=== PATIENT | male | born 1960 | race Caucasian/White ===

== ENCOUNTER 2020-11-01 09:02 | Outpatient (CLI) | payer OTHER, SELFPAY | END 2020-11-01 09:03 | disposition home or self-care (01) | LOC: ANHCOVIDVC 09:02 | PROVIDERS: PCP Urology | DX: Z23 Encounter for immunization (principal) | CPT/HCPCS: 0001A; 91300 ==

== ENCOUNTER 2020-11-22 09:00 | Outpatient (CLI) | payer OTHER, SELFPAY | END 2020-11-22 09:01 | disposition home or self-care (01) | LOC: ANHCOVIDVC 09:00 | PROVIDERS: PCP Urology | DX: Z23 Encounter for immunization (principal) | CPT/HCPCS: 0002A; 91300 ==

== ENCOUNTER 2021-01-30 10:17 | Outpatient (CLI) | payer OTHER, SELFPAY ==
--- NOTE | 2021-01-30 | ECG_ITS ---
Measurements Intervals [place] Rate: 83 P: 40 LA: 154 QRS: 3 QRSD: 86 T: 8 QT: 353 QTc: 417 Interpretive Statements SINUS RHYTHM BORDERLINE T WAVE ABNORMALITY- INFERIOR LEADS BORDERLINE ECG Electronically Signed On 01-30-2021 15:54:47 CDT by Ramirez Tipton D.O.
== END 2021-01-30 10:18 | disposition home or self-care (01) ==
LOC: ANHCARD 10:19
PROVIDERS: PCP Internal Medicine; Visit Provider Internal Medicine
DX: I10 Essential (primary) hypertension (principal)
CPT/HCPCS: 93005

== ENCOUNTER 2021-06-24 00:46 | Day surgery (SDC) | payer OTHER, SELFPAY ==
[2021-06-10 09:19] VITALS: BMI 29.2
[2021-06-24 08:12] VITALS: BP 150/82; PULSE 132; RESP 18; TEMP 36.7; O2SAT 100; BMI 29.8
--- NOTE | 2021-06-24 08:21 | WPDANESEPPF ---
Anes - Initial Pre Proc Eval Procedure: Operation Date: 06/24/21 09:30 Proposed Procedures p Screening Colonoscopy - Gurvinder Narvaez MD Date/Time: 06/24/21 08:21 Surgeon: Gurvinder Narvaez MD Pre Op Diagnosis: neoplasm screening Z12.11 Patient Data Age: 61 Gender: M Height: 1.68 m Weight: 82 kg Allergies Allergy/AdvReac Type Severity Reaction Status Date / Time No Known Allergies Allergy Verified 06/24/21 08:24 Home Medications Medication Instructions Recorded Confirmed Type ibuprofen 100 mg tablet 200 mg PO QID PRN 01/30/21 06/24/21 History amlodipine 2.5 mg tablet 2.5 mg PO DAILY #90 tablet 02/27/21 06/24/21 Rx lisinopril 20 mg tablet 20 mg PO DAILY #90 tablet 02/27/21 06/24/21 Rx rosuvastatin 5 mg tablet 5 mg PO DAILY #90 tablet 04/07/21 06/24/21 Rx Patient hx anesthesia problems: none Family hx anesthesia problems: none Results Review: All pre-operative results and documents have been reviewed as part of the pre-operative evaluation. [facility] Past Medical History Medical History (Updated 06/24/21 @ 08:22 by London Chávez MD) Dyslipidemia Essential hypertension History of prostate cancer Overweight (BMI 25.0-29.9) Family History Family History (Updated 03/27/16 @ 23:21 by DOCTOR UNKNOWN) Mother Patient's mother is in good health Sibling Patient's brother is in good health Father Family history of diabetes mellitus in first degree relative Malignant neoplasm of prostate Family history of Alzheimer's disease Social History Social History (Updated 02/27/21 @ 09:37 by Cate Chawla MA) Smoking status: Never smoker Alcohol intake: current Alcohol use details: Occasionally Substance use: never Living arrangements: with family Spiritual care concerns: No Anes - Eval Final PreProcedure Day of Procedure 06/24/21 08:21 Patient weight: overweight Heart: regular rate and rhythm Lungs: clear to auscultation and normal air movement Airway: Mallampati scale class II Neurological: alert and oriented Last oral intake: >/= 8 hours ASA classification: III Emergent: no Anesthetic plan: proceed Anesthesia type and monitoring: general GIVS Results Review: All pre-operative results and documents have been reviewed as part of the pre-operative evaluation. Informed Consent: The patient's anesthetic plan and its attendant risks and benefits were discussed with the patient/family/POA. Questions were solicited and answers provided to the satisfaction of the patient/family/POA.
[2021-06-24] MEDS: LACTATED RINGERS 1,000 ML 150 ML IV CONT (08:34)
--- NOTE | 2021-06-24 09:30 | PM.HPGS ---
History of Present Illness History of Present Illness Consent: Risks, benefits, and alternatives have been discussed and questions answered. Patient agrees to proceed with procedure. Chief complaint: neoplasm screening Z12.11 Narrative: Jerson Foreman is a 61 year old male here for screening colonoscopy, last one over 10 years ago. Review of Systems Constitutional: Constitutional: Denies headache(s) and Denies weakness Eyes: Eyes: Denies blurry vision ENT: Reports Normal hearing present, Denies headache(s) and Denies neck pain Cardiovascular: Cardiovascular: Denies chest pain and Denies dyspnea Respiratory: Respiratory: Denies dyspnea Gastrointestinal: Gastrointestinal: Reports no additional gastrointestinal complaints Genitourinary: Genitourinary: Denies dysuria Musculoskeletal: Musculoskeletal: Denies neck pain Integumentary/Breasts: Skin/Breast: Denies dry skin Neurologic: Reports Normal hearing present, Denies headache(s) and Denies weakness Psychiatric: Psychiatric: Denies anxiety Endocrine: Endocrine: Denies change in body appearance Hematologic/Lymphatic: Hematologic/Lymphatic: Denies easy bleeding Allergic/Immunologic: Allergic/Immunologic: Denies urticaria PMFSH Past Medical History Medical History (Updated 06/24/21 @ 08:22 by London Chávez MD) Dyslipidemia Essential hypertension History of prostate cancer Overweight (BMI 25.0-29.9) Family History Family History (Updated 03/27/16 @ 23:21 by DOCTOR UNKNOWN) Mother Patient's mother is in good health Sibling Patient's brother is in good health Father Family history of diabetes mellitus in first degree relative Malignant neoplasm of prostate Family history of Alzheimer's disease Social History Social History (Updated 02/27/21 @ 09:37 by Cate Chawla MA) Smoking status: Never smoker Alcohol intake: current Alcohol use details: Occasionally Substance use: never Living arrangements: with family Spiritual care concerns: No Meds Home Medications and Allergies Home Medications Medication Instructions Recorded Confirmed Type ibuprofen 100 mg tablet 200 mg PO QID PRN 01/30/21 06/24/21 History amlodipine 2.5 mg tablet 2.5 mg PO DAILY #90 tablet 02/27/21 06/24/21 Rx lisinopril 20 mg tablet 20 mg PO DAILY #90 tablet 02/27/21 06/24/21 Rx rosuvastatin 5 mg tablet 5 mg PO DAILY #90 tablet 04/07/21 06/24/21 Rx Allergies Allergy/AdvReac Type Severity Reaction Status Date / Time No Known Allergies Allergy Verified 06/24/21 08:24 Vital Signs Vital Signs - 24 hr 06/24/21 08:12 Temperature 98.0 F Pulse Rate 132 H Respiratory Rate 18 Blood Pressure 150/82 H Pulse Oximetry 100 Exam Const: General: comfortable and no acute distress HENMT: General nose exam: Normal nares present Eyes: General: appearance normal, both eyes and all related structures Neck: Neck: no JVD Resp: Auscultation: clear to auscultation bilaterally Cardio: Rate: regular rate Rhythm: regular rhythm GI: Inspection: non-distended GI Palp: Yes Soft to palpation Skin: General skin exam: normal color Neuro: General: gait normal Speech: normal speech Extrem: General: normal to inspection Psych: Mental Status: mental status grossly normal Assessment and Plan Assessment and plan (1) Encounter for screening colonoscopy: Code(s): Z12.11 - Encounter for screening for malignant neoplasm of colon Status: Acute Assessment and Plan: colonoscopy
[2021-06-24 09:46] VITALS: BP 113/69; PULSE 101; RESP 20; O2SAT 99
[2021-06-24 09:56] VITALS: BP 111/73; PULSE 93; RESP 24; O2SAT 100
[2021-06-24 10:06] VITALS: BP 120/79; PULSE 83; RESP 18; O2SAT 100
== END 2021-06-24 10:22 | disposition home or self-care (01) ==
PROVIDERS: PCP Internal Medicine; Visit Provider Internal Medicine Gastroenterology
PROC: 0DJD8ZZ Inspection of Lower Intestinal Tract, Via Natural or Artificial Opening Endoscopic (ICD-10-PCS; CPT 45378; principal; 2021-06-24 09:30)
DX: Z12.11 Encounter for screening for malignant neoplasm of colon (principal); K64.8 Other hemorrhoids; I10 Essential (primary) hypertension; E78.5 Hyperlipidemia, unspecified; Z85.46 Personal history of malignant neoplasm of prostate
CPT/HCPCS: 45378; J2001; J2704; J7120

== ENCOUNTER → 2021-11-14 05:00 | Outpatient (CLI) | payer OTHER, SELFPAY ==
[2021-11-14 13:12] LABS: Influenza A QL RT-PCR Negative (Negative); Influenza B QL RT-PCR Negative (Negative); SARS-CoV-2 RNA PCR Negative
== END ==
PROVIDERS: PCP Internal Medicine; Visit Provider Internal Medicine
DX: R68.89 Other general symptoms and signs (principal); Z20.822 Contact with and (suspected) exposure to COVID-19
CPT/HCPCS: 87502; C9803; U0003; U0005

== ENCOUNTER 2024-11-07 11:11 | Emergency (ER) | payer OTHER, SELFPAY ==
--- NOTE | ~2024-11-07 | CT_ITS ---
EXAMINATION: CT hip RT wo con DATE: 11/07/2024 13:36 INDICATION: Right hip pain. TECHNIQUE: Computed tomography (CT) of the right hip was performed without intravenous contrast. Auto mated exposure control and iterative reconstruction technique were employed. The dose-length product was 348.50 mGy-cm. COMPARISON: CT abdomen pelvis 11/18/2011 FINDINGS: Alignment is normal. No fracture. There is mild osteoarthritis of the sacroiliac joint and right hip joint. IMPRESSION: 1. Mild right hip osteoarthritis. Reviewed, dictated and finalized at location B.
--- NOTE | ~2024-11-07 | CT_ITS ---
EXAMINATION: CT lumbar spine wo con DATE: 11/07/2024 13:35 INDICATION: Sciatica. Right hip pain. TECHNIQUE: Computed tomography (CT) of the lumbar spine was performed without intravenous contrast. A utomated exposure control and iterative reconstruction technique were employed. The dose-length produ ct was 634.15 mGy-cm. COMPARISON: None FINDINGS: There is 9 degrees dextrocurvature of lumbar spine. Vertebral body heights are normal. Ther e is mildly decreased disc height at L1-L2 and L2-L3 and moderately decreased disc height from L3-L4 through L5-S1. The following disc levels are specifically discussed: L1-L2: The disc does not extend beyond the endplate margin. There is mild bilateral facet joint osteo arthritis. There is no neural foraminal stenosis. There is no central canal stenosis. L2-L3: The disc is bulging. There is mild bilateral facet joint osteoarthritis. There is mild bilater al neural foraminal stenosis. There is mild central canal stenosis. L3-L4: The disc is bulging. There is mild bilateral facet joint osteoarthritis. There is mild bilater al neural foraminal stenosis. There is mild central canal stenosis. L4-L5: The disc is bulging. There is mild bilateral facet joint osteoarthritis. There is moderate rig ht and mild left neural foraminal stenosis. There is mild central canal stenosis. L5-S1: The disc is bulging. There is mild bilateral facet joint osteoarthritis. There is mild bilater al neural foraminal stenosis. There is mild central canal stenosis. IMPRESSION: 1. Moderate lumbar spondylosis. Reviewed, dictated and finalized at location B.
[2024-11-07 11:12] VITALS: BP 173/83; PULSE 114; RESP 16; TEMP 36.6; O2SAT 97
--- OUTSIDE RECORDS SUMMARY | 2024-11-07 13:00 | XMS_ITS | Clinical Summary ---
Author Organization [facility] Address [address] [place] [place] [address] Care Team Providers Care Bar Gauger And Lubricator Tender Name Role Phone None, Physician Primary Care Provider Unavailabl e Source Comments [facility],non-owned Affiliates and Associated Physician Practices is amultiple site organization consisting of ambulatory clinics and hospital sitesin [place], [place], [place] and [place]. This disclosure is being madepursuant to the Care Everywhere program and may not contain all information available regarding this patient. Last updated 18.[facility] Allergies No known active allergies Social History Tobacco Use Types Packs/Day Years Used Date Smoking Tobacco: Never Assessed Sex and Gender Information Value Date Recorded Sex Assigned at Not on file Gender Identity Not on file Sexual Orientation Not on file Last Filed Vital Signs Vital Sign Reading Time Taken Comments Blood Pressure 120/78 08/07/2024 8:12 AM RESOURCE DIRECTOR Pulse 78 08/07/2024 8:12 AM RESOURCE DIRECTOR Temperature 36.6 C (97.8 F) 08/07/2024 8:12 AM RESOURCE DIRECTOR Respiratory Rate 16 08/07/2024 8:12 AM RESOURCE DIRECTOR Oxygen Saturation 97% 08/07/2024 8:12 AM RESOURCE DIRECTOR Inhaled Oxygen Concentration - - Weight 86.2 kg (190 lb) 08/06/2024 11:38 PM RESOURCE DIRECTOR Height 167.6 cm (5' 6 ) 08/06/2024 11:38 PM RESOURCE DIRECTOR Body Mass Index 30.67 08/06/2024 11:38 PM RESOURCE DIRECTOR Plan of Treatment Health Maintenance Due Date Last Done Comments COLOGUARD (AGES 45-75) - COL ON CA SCREENING 1961 COLON MONITORING 1961 COLONOSCOPY - COLON CA SCREENING 1961 CT COLONOGRAPHY - COLON CA SCREENING 1961 Colorectal Cancer Screening 1961 FIT - COLON CA SCREENING 1961 FLEX SIG - COLON CA SCREENING 1961 LIPID TESTING 1961 HIV SCREENING 1976 HEPATITIS C SCREENING 06/18/1979 DTAP/TDAP/TD VACCINES (1 - Tdap) 1980 PNEUMOCOCCAL VACCINE 50+ (1 of 1 - PCV) 2011 ZOSTER VACCINE (1 of 2) 2011 COVID-19 VACCINE (1 - 2023-2 5 season) 2024 INFLUENZA VACCINE (#1) 2024 DEPRESSION SCREENING 08/30/2024 Respiratory Syncytial Virus (RSV) Vaccine Pt: or over 60 yrs (1 - 1-dose 75+ series) 2036 HEPATITIS B VACCINE Aged Out No longe r eligible based on patient's age to complete this topic HIB VACCINE Aged Out No longer eligi ble based on patient's age to complete this topic HPV VACCINE Aged Out No longer eligi ble based on patient's age to complete this topic MENINGOCOCCAL (Group B) VACCINE Aged Out No longer eligible based on patient's age to complete this topic MENINGOCOCCAL VACCINE Aged Out No donna caprice eligible based on patient's age to complete this topic PNEUMOCOCCAL VACCINE Aged Out No long er eligible based on patient's age to complete this topic Care Teams Bar Gauger And Lubricator Tender Relationship Specialty Start Date End Date None, Physician [address] [place] [address] PCP - General 08/07/24
--- OUTSIDE RECORDS SUMMARY | 2024-11-07 13:00 | XMS_ITS | Referral Summary ---
Author Organization [facility] Address [address] [place] [address] Care Team Providers Care Agriculture Laborer Name Role Phone None, Physician Primary Care Provider Unavailabl e Source Comments [facility],non-owned Affiliates and Associated Physician Practices is amultiple site organization consisting of ambulatory clinics and hospital sitesin [place], [place], [place] and [place]. This disclosure is being madepursuant to the Care Everywhere program and may not contain all information available regarding this patient. Last updated 18.[facility] [employer] Allergies No known active allergies Social History Tobacco Use Types Packs/Day Years Used Date Smoking Tobacco: Never Assessed Sex and Gender Information Value Date Recorded Sex Assigned at Not on file Gender Identity Not on file Sexual Orientation Not on file Last Filed Vital Signs Vital Sign Reading Time Taken Comments Blood Pressure 120/78 08/07/2024 8:12 AM LEARNING SUPPORT AIDE Pulse 78 08/07/2024 8:12 AM LEARNING SUPPORT AIDE Temperature 36.6 C (97.8 F) 08/07/2024 8:12 AM LEARNING SUPPORT AIDE Respiratory Rate 16 08/07/2024 8:12 AM LEARNING SUPPORT AIDE Oxygen Saturation 97% 08/07/2024 8:12 AM LEARNING SUPPORT AIDE Inhaled Oxygen Concentration - - Weight 86.2 kg (190 lb) 08/06/2024 11:38 PM LEARNING SUPPORT AIDE Height 167.6 cm (5' 6 ) 08/06/2024 11:38 PM LEARNING SUPPORT AIDE Body Mass Index 30.67 08/06/2024 11:38 PM LEARNING SUPPORT AIDE Plan of Treatment Not on file Care Teams Agriculture Laborer Relationship Specialty Start Date End Date None, Physician [address] [place] [address] PCP - General 08/07/24
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
[2024-11-07] MEDS: HYDROmorphone HCL INJ (*CRX) 1 MG/ML SYR IM (13:42)
[2024-11-07] MEDS: dexAMETHasone SOD PHOS INJ 10 MG/ML 1 ML VIAL IM (13:42)
[2024-11-07] MEDS: methocarbamoL 750 MG TABLET PO (13:43)
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
[2024-11-07 15:00] VITALS: BP 130/76; PULSE 79; RESP 18; TEMP 36.4; O2SAT 98
--- OUTSIDE RECORDS SUMMARY | 2024-11-07 15:51 | XMS_ITS | Referral Summary ---
Author Organization [facility] Address [address] [place] [address] Care Team Providers Care Food Sampler Name Role Phone None, Physician Primary Care Provider Unavailabl e Source Comments [facility],non-owned Affiliates and Associated Physician Practices is amultiple site organization consisting of ambulatory clinics and hospital sitesin [place], [place], [place] and [place]. This disclosure is being madepursuant to the Care Everywhere program and may not contain all information available regarding this patient. Last updated 18.[facility] [employer] Allergies No known active allergies Social History Tobacco Use Types Packs/Day Years Used Date Smoking Tobacco: Never Assessed Sex and Gender Information Value Date Recorded Sex Assigned at Not on file Gender Identity Not on file Sexual Orientation Not on file Last Filed Vital Signs Vital Sign Reading Time Taken Comments Blood Pressure 120/78 08/07/2024 8:12 AM APPLIANCE SERVICE REPRESENTATIVE Pulse 78 08/07/2024 8:12 AM APPLIANCE SERVICE REPRESENTATIVE Temperature 36.6 C (97.8 F) 08/07/2024 8:12 AM APPLIANCE SERVICE REPRESENTATIVE Respiratory Rate 16 08/07/2024 8:12 AM APPLIANCE SERVICE REPRESENTATIVE Oxygen Saturation 97% 08/07/2024 8:12 AM APPLIANCE SERVICE REPRESENTATIVE Inhaled Oxygen Concentration - - Weight 86.2 kg (190 lb) 08/06/2024 11:38 PM APPLIANCE SERVICE REPRESENTATIVE Height 167.6 cm (5' 6 ) 08/06/2024 11:38 PM APPLIANCE SERVICE REPRESENTATIVE Body Mass Index 30.67 08/06/2024 11:38 PM APPLIANCE SERVICE REPRESENTATIVE Plan of Treatment Not on file Care Teams Food Sampler Relationship Specialty Start Date End Date None, Physician [address] [place] [address] PCP - General 08/07/24
--- OUTSIDE RECORDS SUMMARY | 2024-11-07 15:51 | XMS_ITS | Clinical Summary ---
Author Organization [facility] Address [address] [place] [address] Care Team Providers Care Bung Sewer Name Role Phone None, Physician Primary Care Provider Unavailabl e Source Comments [facility],non-owned Affiliates and Associated Physician Practices is amultiple site organization consisting of ambulatory clinics and hospital sitesin [place], [place], [place] and [place]. This disclosure is being madepursuant to the Care Everywhere program and may not contain all information available regarding this patient. Last updated 18.[facility] Allergies No known active allergies Social History Tobacco Use Types Packs/Day Years Used Date Smoking Tobacco: Never Assessed Sex and Gender Information Value Date Recorded Sex Assigned at Not on file Gender Identity Not on file Sexual Orientation Not on file Last Filed Vital Signs Vital Sign Reading Time Taken Comments Blood Pressure 120/78 08/07/2024 8:12 AM CLOUD SERVICES ARCHITECT Pulse 78 08/07/2024 8:12 AM CLOUD SERVICES ARCHITECT Temperature 36.6 C (97.8 F) 08/07/2024 8:12 AM CLOUD SERVICES ARCHITECT Respiratory Rate 16 08/07/2024 8:12 AM CLOUD SERVICES ARCHITECT Oxygen Saturation 97% 08/07/2024 8:12 AM CLOUD SERVICES ARCHITECT Inhaled Oxygen Concentration - - Weight 86.2 kg (190 lb) 08/06/2024 11:38 PM CLOUD SERVICES ARCHITECT Height 167.6 cm (5' 6 ) 08/06/2024 11:38 PM CLOUD SERVICES ARCHITECT Body Mass Index 30.67 08/06/2024 11:38 PM CLOUD SERVICES ARCHITECT Plan of Treatment Health Maintenance Due Date [...] age to complete this topic Care Teams Bung Sewer Relationship Specialty Start Date End Date None, Physician [address] [place] [address] PCP - General 08/07/24
--- OUTSIDE RECORDS SUMMARY | 2024-11-07 15:51 | XMS_ITS | Data Portability ---
Author Organization [place] [facility], Main Office Address [address] [place] [address] Care Team Providers Care Farm Assistant Name Role Phone YEFRI HINES Primary Care Provider [phone] YEFRI HINES Referring Provider [phone] Assessment Encounter Date Assessment Date Assessment LastModified by Organization Details LastModified Time 01/27/2023 01/27/2023 Impression: Patient has mechanical catching in his left knee. He has had 4 major episodes of locking catching over last year. Differential diagnosis would include medial meniscus tear and his focal point tenderness over the mid medial joint line is suspicious for that. He has no other areas of tenderness. 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 There is also a 4 x 3 and 0.5 mm ossified loose body that projects lateral to the patella on the sunrise view. It is not possible to know whether this is intra-articular or within the lateral retinaculum. If it is intra-articular this could be causing the catching symptoms he is complaining of. I have discussed options with him. He would like to proceed with obtaining an MRI scan of the left knee in the hopes of being able to address this problem. I will see him back after the test. 30 minutes were spent in total care this patient more than half the time spent in [id number] care. Not available 01/27/2023 11:56:20 02/10/2023 02/10/2023 Patient returns after MRI scan of his left knee. I have reviewed the images with the patient. The ossicle a bone lateral to the patella is imbedded in the lateral retinaculum and not a loose body. There is mild narrowing of the medial compartment joint space. There is complex degenerative tearing of the midbody and posterior horn of the medial meniscus. There is no obvious unstable flap. There is a fairly large area of fairly prominent subchondral bone edema under the anteromedial tibial plateau most consistent with osteo arthritic bone marrow edema. Mild effusion moderately large popliteal cyst. I have reviewed the MRI images with the patient and I have discussed the significance of these findings and his options. The significant subchondral bone marrow edema the anteromedial joint line is a sequela of osteoarthritis. Arthroscopic partial meniscectomy may be an option for him. His history suggested mechanical locking catching symptoms and there is certainly extensive tearing of the midbody and posterior horn of medial meniscus is unclear whether the locking catching symptoms are related to a flap of meniscus getting caught in the joint or more a result of the anteromedial arthritis. I have recommended a trial of non operative management consisting of a course of physical therapy and anti-inflammator y medication. He has no history of peptic ulcer disease liver problems or kidney problems. Will prescribe diclofenac 75 mg twice daily. I have given him an instruction she describing possible side effects of anti-inflammator y medication use. I recommended a course of physical therapy for him and I would recommend he decrease has activities to the extent possible and with respect to his long distance running, based on the subchondral bone edema in the anteromedial tibial plateau, I think that he should strongly consider giving up running has 1 of his activities. He states that at age 51 he weighed 200 lb took up running good his weight down 165. Now that he has not been able to run his weight is starting to climb up he is going to have to watch his daily caloric intake accordingly. Right now is left knee is not causing him severe pain. He has an occasional twinge she will feel if he twists the knee the wrong way but overall his symptoms are very mild currently. His work has not necessitated his crawling on his knees climbing ladders and so forth lately. If he does not improve, we would have the option of considering arthroscopic surgery to trim the torn portions of the medial meniscus but unfortunately there is no guarantee that this will be helpful as the arthritic subchondral marrow edema the anteromedial tibial plateau will not be improved upon by arthroscopic surgery and may be his primary pain generator at this time. I will see him back in 6 weeks to assess his progress. 30 minutes were spent total care this patient more than half the time spent in [id number] care. Not available 02/10/2023 12:12:14 03/24/2023 03/24/2023 Patient returns. He was last seen 6 weeks ago at which time x-rays demonstrated degenerative tearing of the medial meniscus but an area of significant arthritic subchondral bone marrow edema in the anteromedial tibial plateau. He has been taking the diclofenac 75 mg twice daily. He notes that he is doing much better overall. He has occasional bad days but a lot more better days now. Crawling in the attic doing a lot of work there recently made it sore. Occasionally he takes the diclofenac twice a day if he has soreness late that day. He feels he tolerates it very well. He has had a couple of episodes where he turns any the wrong way in the knee is sore for a couple of days. But then he is fine and asymptomatic completely for a week. Exam today had range of motion left knee 0140 without discomfort. He has no posteromedial joint line tenderness. He has moderate focal tenderness the anteromedial margin of the tibial plateau where he has the known bone bruise. There is no effusion. Impression patient has degenerative tearing medial meniscus left knee mild medial compartment joint space narrowing and MRI scan showing 6 weeks ago a fairly prominent anteromedial subchondral tibial bone bruise. I have discussed options with him again today. I explained that resection of the torn portion of medial meniscus will eliminate that portion of meniscus as a pain generator. It will not help with the anteromedial bone bruising. I think that arthroscopic surgery would be a reasonable option if he is not improving with non operative treatment but he is improving fairly well and would rather observe at this time. We will keep him on the diclofenac for now and if once a day is effective that would be fine. I would recommend obtaining a CMP and a CBC 6 weeks. I will see him back at that time to assess his progress. I explained him that if he develops sharp stabbing pain in the posterior medial joint line and would like to proceed with arthroscopic surgery instead of continuing observation it is if he can call us and we can make these arrangements. The other hand, if he is doing well observation is certainly appropriate. The 20 minutes were spent total care this patient more than half the time spent in [id number] care. Not available 03/27/2023 12:43:03 Plan of Treatment Reminders Order Date Submit Date Provider Last Modified By Organization Details Last Modified Time Details Appointments None recorded. Lab CBC w/ auto diff - have done in approx 6wks with other labs already scheduled- fax results 2022 023 SHABNAM Not available 3 11:29:34 CMP, serum or plasma 2022 023 SHABNAM Not available 11:29:34 Referral None recorded. Procedures None recorded. Surgeries None recorded. Imaging XR, knee 2022 023 [email or web address] [facility], [address], [place], [address], 3 12:06:01 Medication Orders diclofenac sodium 75 mg tablet,adan yed release [id number], [address], [place], [place], [phone], 3 16:44:49 diclofenac sodium 75 mg tablet,adan yed release 2022 023 [id number], [address], [place], [place], [phone], 3 10:23:18 Patient TargetsNo targets recorded. Patient InstructionsNo instructions recorded. Reason for Referral None Reported. Results Created Date Observation Date Name Description Value Unit Range Abnormal Flag Note LastModifiedBy Organization Detail LastModifiedTime 01/28/20 23 XR, knee No observ ation record ed. [facility] [address], [place], [address], 01/27/2023 11:56:07 02/08/20 23 MRI, knee, w/o contr ast [facility] [address] [facility], [place] [address] Patien t Name: XOCHILT FOREMAN Access ion #: [id number] Sex: M : 1959 1 Locati on: RA2 Attend ing Physic orquidea: REMY ALONSO Orderi Physic orquidea: REMY ALONSO Exam Date: 02/06/20 9:26 AM Exam Name: MRI KNEE LT WO Admitt ing Diagno sis(es ): RADIOL OGY REPORT - FINAL EXAM: MRI KNEE LT WO HISTOR Y: pain 62-yea r-old male with left, lockin g, no known injury ; histor y of prosta te cancer . COMPAR FELIX: Radiog raphs dated 2022. TECHNI QUE: Multip lanar multis equenc e noncon trast MR images of the left knee were perfor med. FINDIN GS: No fractu res are identi fied throug hout the left knee. There is mild bone marrow edema of the medial tibial platea u. The ACL, PCL, MCL, LCL, maryan ceps tendon , patell ar tendon , and poplit eus tendon are intact . The latera l menisc us is intact . There is an obliqu e tear of the medial menisc us Page 1 of 2 [facility] Name: XOCHILT FOREMAN Access ion #: [id number] Sex: M : 1959 1 Exam Date: 02/06/20 9:26 AM Exam Name: MRI KNEE LT WO Admitt ing Diagno sis(es ): body and doctor of naprapathy ior horn commun icatin g with the inferi or articu lar surfac e. There is 6 mm latera l patell ar sublux ation. There is low-gr bri chondr omalac ia of the patell ofemor al and medial compar tments . No signif icant chondr omalac ia of the latera l compar tment. There is mild fluid signal anteri or to the patell a and patell ar tendon . There is a modera te joint effusi on. There is a poplit eal fossa cyst measur ing 4.7 cm longit udinal . IMPRES CLINT: 1. The crucia te and collat eral ligame nts are intact . 2. Obliqu e tears of the body and doctor of naprapathy ior horn of the medial menisc us. The latera l menisc us is intact . 3. Low-gr bri chondr omalac ia of the patell ofemor al and medial compar tments . 4. Mild prepat ellar bursit is. 5. Modera te joint effusi on and poplit eal fossa cyst. Create d and electr onical ly signed by: Ronnie fields MD Signed Date: 7:56 AM (CT) Dictat ed by: Ronnie fields MD DD: 7:56 AM (CT) DT: 7:56 AM (CT) Page 2 of [address] (Imaging) [address] [place], [address], 02/08/2023 12:19:57 Result Notes None recorded. Problems Name Problem SNOMED Code Status Onset Date Resolution Date Notes Provider Name and Address Organization Details Recorded Time Pain of left knee joint 261445270621308 Active 2022 Ninfa Essieshaun cochran, [facility] [employer] [facility] 3 10:26:19 Tear of medial meniscus of knee 400125547 Active 2022 JANEL Guevara, [facility] [employer] [facility] 3 10:15:55 Problem Notes None recorded. Procedures Surgical History Date Name Laterality Status Provider Name and Address Organization Details Recorded Time 12/17/2011 Prostate completed Ninfa Fountain [facility] [employer] [facility] 01/27/2023 10:25:32 Imaging Results Imaging Date Name Status LastModified by Organiz ation Details LastModified Time 01/27/2023 XR, knee completed [facility] [place] [address], [place], [address], 01/27/2023 11:56:07 02/07/2023 MRI, knee, w/o contrast completed [address] (Imaging) [address] [place], [address], 02/08/2023 12:19:57 Procedure Notes None recorded. Medical Equipment None Reported. Allergies No known drug allergies Medications Name Sig Start Date Stop Date Status Note LastModified by Organization Details LastModified Time lisinopril 20 mg tablet active Not Available Not Available No t Available amlodipine 2.5 mg tablet active Not Available Not Available No t Available diclofenac sodium 75 mg tablet,delayed release TAKE 1 TABLET BY MOUTH TWICE DAILY active Not Available Not Available No t Available rosuvastatin 5 mg tablet active Not Available Not Available No t Available Vitals Date Recorded Body height Body mass index (BMI) Body weight Provider Name and Address Organization Details Last Updated DateTime 01/27/2023 167.64 cm 32 kg/m2 75306.29 g Ninfa Fountain [facility] [employer] [facility] 01/27/2023 10:43:24 Date Recorded Body height Provider Name an d Address Organization Details Last Updated DateTime 02/10/2023 167.64 cm Kalli Garces [employer] [facility] [employer] [facility] 02/10/2023 09:19:29 Date Recorded Body height Provider Name an d Address Organization Details Last Updated DateTime 03/24/2023 167.64 cm Kalli Garces [facility] 03/24/2023 10:14:46 Social History None recorded. Functional Status None recorded. Mental Status None recorded. Family History Nothing Reported. Medical History Condition Response CANCER: SPECIFY Y Past Encounters Encounter ID Performer Location Encounter Start Date Encounter Closed Date Diagnosis/Indication Diagnosis SNOMED-CT Code Diagnosis ICD10 Code Diagnosis Note [id number] Remy Mccollum MD [facility] [address] [place] [address] 01/27/2023 09:54:20 01/27/2023 12:06:01 Pain of left knee joint 9865756578 69747 M25.562 [id number] Remy Mccollum MD [facility] [address] [place] [address] 02/10/2023 09:17:07 02/10/2023 16:54:25 Pain of left knee joint 6812316912 00853 M25.562 [id number] Remy Mccollum MD [facility] [place] [address] [address] [place] [address] 03/24/2023 10:12:40 03/29/2023 09:38:30 Pain of left knee joint 1895793046 19697 M25.562 Z79.1 rn long term care current use of non-steroidal anti-inflammatory drug 0224351462 02186 Z79.1 Health Concerns Section Related Observation LastModified by Organization Detai ls LastModified Time None Recorded Concern Status LastModified by Organization Details LastModified Time None Recorded Advance Directives Directive None Recorded Payers Encounter Date Sequence Insurance Name Policy Number Policy Murray Covered Member ID Murray Member ID Guarantor Name 01/27/2023 1 [facility] [id number] Xochilt Foreman [id number] Xochilt Foreman 02/10/2023 1 [facility] [id number] Xochilt Foreman [id number] Xochilt Foreman 03/24/2023 1 [facility] [id number] Xochilt Foreman [id number] Xochilt Foreman Notes Date Note Type Note Provider Name and Address Organization Details Recorded Time 01/27/2023 text/html patient is a 62-year-old gentleman who is referred by Dr. Baker for evaluation of his left knee. He has had 4 episodes over this past year where he is tried to stand up from a squatting position and his left knee locks. Makes a click and he feels pain anteromedially. After each of these episodes for about 3 days he has difficulty straightening his knee and significant start-up pain lasts for several minutes. He has no history of any prior problems is knee. No trauma. He feels pain over the anteromedial aspect of the knee. If he tries to run is immediately painful. He has been using prescription strength ibuprofen and Aleve periodically which gives him only temporary relief in symptoms to limbs. 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 Patient has history of prostate cancer. Remy Mccollum MD [address] [place] [address], [facility] [address], [place], [address], [facility] 01/27/2023 11:56:48
--- OUTSIDE RECORDS SUMMARY | 2024-11-07 15:51 | XMS_ITS | Patient Health Summary ---
Author Organization [facility] Address [address] [place] [address] Care Team Providers Care Invasive Cardiovascular Technologist Name Role Phone None, Physician Primary Care Provider Unavailabl e Note from [facility],non-owned Affiliates and Associated Physician Practices is amultiple site organization consisting of ambulatory clinics and hospital sitesin [place], [place], [place] and [place]. This disclosure is being madepursuant to the Care Everywhere program and may not contain all information available regarding this patient. Last updated 18.[facility] Allergies No known active allergies Social History Tobacco Use Types Packs/Day Years Used Date Smoking Tobacco: Never Assessed Sex and Gender Information Value Date Recorded Sex Assigned at Not on file Gender Identity Not on file Sexual Orientation Not on file Last Filed Vital Signs Vital Sign Reading Time Taken Comments Blood Pressure 120/78 08/07/2024 8:12 AM [facility] Pulse 78 08/07/2024 8:12 AM [facility] Temperature 36.6 C (97.8 F) 08/07/2024 8:12 AM [facility] Respiratory Rate 16 08/07/2024 8:12 AM [facility] Oxygen Saturation 97% 08/07/2024 8:12 AM [facility] Inhaled Oxygen Concentration - - Weight 86.2 kg (190 lb) 08/06/2024 11:38 PM [facility] Height 167.6 cm (5' 6 ) 08/06/2024 11:38 PM [facility] Body Mass Index 30.67 08/06/2024 11:38 PM [facility] Procedures * XR WRIST LEFT 3VW OR [...] Left 3Vw or More (08/07/2024 7:57 AM [facility]) Anatomical Region Laterality Modality Wrist / Hand Computed Radiogr aphy 08/07/2024 8:16 AM [facility] Narrative 08/07/2024 8:18 AM [facility] PROCEDURE(s): XR WRIST LEFT 3VW OR MORE, [...] Left 2Vw or More (08/07/2024 7:56 AM [facility]) Anatomical Region Laterality Modality Upper Extremity Computed Radiogr aphy 08/07/2024 8:16 AM [facility] Narrative 08/07/2024 8:18 AM [facility] PROCEDURE(s): XR WRIST LEFT 3VW OR MORE, [...] CT HEAD NON CONTRAST (08/07/2024 5:40 AM [facility]) Anatomical Region Laterality Modality Head Computed Tomogra phy 08/07/2024 7:03 AM [facility] Impressions 08/07/2024 7:07 AM [facility] IMPRESSION: NO ACUTE INTRACRANIAL ABNORMALITIES. CT CERVICAL SPINE WITHOUT CONTRAST Indication: Severe neck pain. Acute neck injury. Comparison: None available Technique: Preliminary interpretation was provided by [facility]. Axial CT images of the cervical spine were obtained without. Coronal and sagittal multiplanar reformatted images were created. All CT scans at [facility] are performed using dose optimization techniques as [...] 08/07/2024 7:07 AM Narrative 08/07/2024 7:[address] [address] SCAN OF THE BRAIN WITHOUT CONTRAST CLINICAL INDICATION: Severe headache. Acute head injury. COMPARISON: None available TECHNIQUE: Preliminary interpretation was provided by [facility]. Axial CT imaging of the brain was performed without contrast. Coronal and sagittal multiplanar reformatted images were created. All CT scans at [facility] are performed using dose optimization techniques as appropriate to a performed exam to include AEC and Adjustment of mA and/or kV according to patient size. [employer] software was utilized for intracranial hemorrhage detection. [...] reformatted images were created. All CT scans [facility] are performed using dose optimization techniques as appropriate to a performed exam to include AEC and Adjustment of mA and/or kV accordingto patient size. [employer] software was utilized for intracranial hemorrhage detection. [...] available Technique: Preliminary interpretation was provided by [facility]. Axial CT images of the cervical spine were obtained without. Coronaland sagittal multiplanar reformatted images were created. All CT scans [facility] are performed using dose optimization techniques as [...] CERVICAL SPINE NON CONTRAST (08/07/2024 5:25 AM [facility]) Anatomical Region Laterality Modality Spine Computed Tomogra phy 08/07/2024 7:03 AM [facility] Impressions 08/07/2024 7:07 AM [facility] IMPRESSION: NO ACUTE INTRACRANIAL ABNORMALITIES. CT CERVICAL SPINE WITHOUT CONTRAST Indication: Severe neck pain. Acute neck injury. Comparison: None available Technique: Preliminary interpretation was provided by [facility]. Axial CT images of the cervical spine were obtained without. Coronal and sagittal multiplanar reformatted images were created. All CT scans at [facility] are performed using dose optimization techniques as [...] 08/07/2024 7:07 AM Narrative 08/07/2024 7:[address] SCAN OF THE BRAIN WITHOUT CONTRAST CLINICAL INDICATION: Severe headache. Acute head injury. COMPARISON: None available TECHNIQUE: Preliminary interpretation was provided by [facility]. Axial CT imaging of the brain was performed without contrast. Coronal and sagittal multiplanar reformatted images were created. All CT scans at [facility] are performed using dose optimization techniques as appropriate to a performed exam to include AEC and Adjustment of mA and/or kV according to patient size. [employer] software was utilized for intracranial hemorrhage detection. [...] available TECHNIQUE: Preliminary interpretation was provided by [facility]. Axial CT imaging of the brain was performed without contrast. Coronaland sagittal multiplanar reformatted images were created. All CT scans [facility] are performed using dose optimization techniques as [...] reformatted images were created. All CT scans [facility] are performed using dose optimization techniques as [...] * (ABNORMAL) DIFFERENTIAL MANUAL (08/07/2024 3:42 AM [facility]) Neutrophil % 80(H) 41 - 74 % 08/07/2024 4:45 AM [facility] Lymphocyte % 16(L) 17 - 47 % 08/07/2024 4:45 AM [facility] Monocyte % 3 3 - 11 % 08/07/2024 4:45 AM [facility] Eosinophil % 1 0 - 7 % 08/07/2024 4:45 AM [facility] Neutrophil Absolute 8.72(H) 1.60 - 7.50 x10E9/L 08/07/2024 4:45 AM [facility] Lymphocyte Absolute 1.74 1.00 - 4.40 x10E9/L 08/07/2024 4:45 AM [facility] Monocyte Absolute 0.33 0.15 - 1.00 x10E9/L 08/07/2024 4:45 AM [facility] Eosinophil Absolute 0.11 0.00 - 0.60 x10E9/L 08/07/2024 4:45 AM [facility] RBC Morphology NORMAL 08/07/2024 4:45 AM [facility] Platelet Morphology NORMAL 08/07/2024 4:45 AM [facility] Blood BLOOD SPECIMEN / Unknown Venipuncture / Unknown 08/07/2024 3:42 AM [facility] 08/07/2024 3:47 AM [facility] Jorje Carreno MD LAB - HEMATOLOGY ORD ERABLES [facility] [address] [place] [address] * (ABNORMAL) CBC W AUTO DIFFERENTIAL (08/07/2024 3:42 AM [facility]) WBC 10.9(H) 4.0 - 10.7 x10E9/L 08/07/2024 4:45 AM [facility] RBC Count 5.02 4.30 - 5.80 x10E12/L 08/07/2024 4:45 AM [facility] Hemoglobin 15.3 13.3 - 17.5 g/dL 08/07/2024 4:45 AM [facility] Hematocrit 46.1 38.7 - 51.1 % 08/07/2024 4:45 AM [facility] MCV 91.8 80.0 - 98.0 fL 08/07/2024 4:45 AM [facility] MCH 30.5 26.7 - 33.6 pg 08/07/2024 4:45 AM [facility] MCHC 33.2 31.7 - 36.3 g/dL 08/07/2024 4:45 AM [facility] RDW-CV 12.8 11.3 - 14.8 % 08/07/2024 4:45 AM [facility] Platelet Count 258 150 - 420 x10E9/L 08/07/2024 4:45 AM [facility] MPV 9.2 7.8 - 11.4 fL 08/07/2024 4:45 AM [facility] Blood BLOOD SPECIMEN / Unknown Venipuncture / Unknown 08/07/2024 3:42 AM [facility] 08/07/2024 3:47 AM [facility] Jorje Carreno MD LAB - HEMATOLOGY ORD ERABLES [facility] [id number] [place] [id number] * (ABNORMAL) COMPREHENSIVE METABOLIC PANEL (08/07/2024 3:42 AM [facility]) Glucose 121(H) 70 - 99 mg/dL 08/07/2024 4:06 AM [facility] Sodium 139 136 - 145 mmol/L 08/07/2024 4:06 AM [facility] Potassium 5.1 3.5 - 5.1 mmol/L 08/07/2024 4:06 AM [facility] Chloride 108(H) 98 - 107 mmol/L 08/07/2024 4:06 AM [facility] CO2 23 22 - 29 mmol/L 08/07/2024 4:06 AM [facility] Calcium 9.6 8.4 - 10.4 mg/dL 08/07/2024 4:06 AM [facility] Anion Gap 8 6 - 16 mmol/L 08/07/2024 4:06 AM [facility] BUN 21 7 - 26 mg/dL 08/07/2024 4:06 AM [facility] Creatinine 1.16 0.72 - 1.25 mg/dL 08/07/2024 4:06 AM [facility] Alkaline Phosphatase 67 40 - 150 U/L 08/07/2024 4:06 AM [facility] ALT 32 0 - 55 U/L 08/07/2024 4:06 AM [facility] AST 25 5 - 34 U/L 08/07/2024 4:06 AM [facility] Protein Total 7.5 6.4 - 8.3 gm/dL 08/07/2024 4:06 AM [facility] Albumin 4.4 3.4 - 5.0 gm/dL 08/07/2024 4:06 AM [facility] Bilirubin Total 0.4 0.2 - 1.2 mg/dL 08/07/2024 4:06 AM [facility] eGFR by CKD-EPI 71(L) >=90 mL/min/1.7 3 m2 08/07/2024 4:06 AM [facility] Blood BLOOD SPECIMEN / Unknown Venipuncture / Unknown 08/07/2024 3:42 AM [facility] 08/07/2024 3:47 AM [facility] Jorje Carreno MD LAB - CHEMISTRY [facility] Organization Address City/State/ZIP Co de Phone Number [facility] [address] [place] [address] Care Teams Invasive Cardiovascular Technologist Relationship Specialty Start Date End Date None, Physician [facility] [place] [address] PCP - General 08/07/24
== END 2024-11-07 15:01 | disposition home or self-care (01) ==
PROVIDERS: Emergency Provider Student in an Organized Health Care Education/Training Program; PCP Internal Medicine
DX: M54.41 Lumbago with sciatica, right side (principal); M47.816 Spondylosis without myelopathy or radiculopathy, lumbar region; M16.11 Unilateral primary osteoarthritis, right hip; I10 Essential (primary) hypertension
CPT/HCPCS: 72131; 73700; 96372; 99284; A9270; J1100; J1171

== ENCOUNTER 2024-11-16 13:27 | Outpatient (CLI) | payer OTHER, SELFPAY ==
--- NOTE | ~2024-11-16 | MR_ITS ---
MRI of the lumbar spine Clinical History: Radiculopathy Technique: Axial T2-weighted images, and sagittal T1-weighted, T2-weighted, and and T2 fat-sat images were acquired. Findings: There is no fracture or subluxation of the lumbar spine. Vertebral bodies maintain normal h eight and alignment. No suspicious bone marrow signal abnormality seen. At L1-L2, there is no disc bulge or herniation. There is mild facet arthropathy. No central canal debby nosis or neural foraminal narrowing. At L2-L3, there is minimal disc bulge and mild facet arthropathy. No central canal stenosis or neural foraminal narrowing. At L3-L4, there is degenerative distended with minimal bulge and mild facet arthropathy. No central c anal stenosis. There is mild left neural foraminal narrowing. Right neural foramen preserved. At L4-L5, there is moderate degenerative disc narrowing. There is right foraminal disc protrusion wit h moderate facet arthropathy. No central canal stenosis or left neural foraminal narrowing. There is severe right neural foraminal compromise. At L5-S1, there is moderate degenerative distended with minimal bulge and mild facet arthropathy. No central canal stenosis or neural foraminal narrowing. Paravertebral soft tissues are unremarkable. Impression: Right foraminal disc protrusion at L4-L5 with resultant severe right neural foraminal compromise. Additional mild degenerative changes overall, as above. Reviewed, dictated and finalized at [facility]. Impression: Right foraminal disc protrusion at L4-L5 with resultant severe right neural for aminal compromise. Additional mild degenerative changes overall, as above.
--- NOTE | ~2024-11-16 | MR_ITS ---
MRI of the right shoulder Technique: Axial proton-density fat-sat images, coronal proton density fat-sat and T2 fat-sat images, and sagittal T1-weighted and T2 fat-sat images were acquired. Clinical History: Pain Findings: There is severe AC joint degenerative change. There is bony productive change about the castro nt with bone marrow edema and subchondral cystic change. Coracoclavicular, coracoacromial, coracohume ral ligaments are intact. There is moderate tendinosis of the supraspinatus and infraspinatus tendons without high-grade partia l or full-thickness tear. There is a suspected focal low-grade interstitial tear at the distal supras pinatus tendon insertion region measuring 2-3 mm. Subscapularis tendon is intact with moderate tendin osis. Tendon of long head of the biceps is intact. There is probable degenerative attenuation of the posterior superior labrum without alexus distention labral tear. Inferior glenohumeral ligament is intact. There is minimal fluid in the subacromial/subdeltoid bursa. No significant degenerative change of the glenohumeral joint. There is enthesopathic change at the r otator cuff insertion region. No muscle atrophy or edema. Impression: Extensive rotator cuff tendinosis with probable focal low-grade interstitial tear at the distal supra spinatus tendon insertion, as above. Degenerative attenuation of the posterior superior labrum without detached labral tear. Severe AC joint degenerative change. Minimal subacromial/subdeltoid bursitis. Reviewed, dictated and finalized at [facility]. Impression: Extensive rotator cuff tendinosis with probable focal low-grade interstitial te ar at the distal supraspinatus tendon insertion, as above. Degenerative attenuation of the posterior superior labrum without detached labr al tear. Severe AC joint degenerative change. Minimal subacromial/subdeltoid bursitis.
== END 2024-11-16 13:28 | disposition home or self-care (01) ==
LOC: GOSHIMG 13:27
PROVIDERS: PCP Internal Medicine; Visit Provider Nurse Practitioner Family
DX: M19.011 Primary osteoarthritis, right shoulder (principal); M75.51 Bursitis of right shoulder; M51.26 Other intervertebral disc displacement, lumbar region; M51.369 Other intervertebral disc degeneration, lumbar region without mention of lumbar back pain or lower extremity pain
CPT/HCPCS: 72148; 73221